=== PATIENT | female | born 1975 | race Caucasian/White ===

== ENCOUNTER 2019-03-31 16:18 | Emergency (ER) | payer BC ==
[2019-03-31 16:37] VITALS: BP 106/68
--- NOTE | 2019-03-31 16:44 | UC ---
Throat Pain/Nasal Ivan HPI - HPI Summary HPI Summary: Pt presents with c/o nasal congestion, cough, sore throat X 2 weeks. - History of Current Complaint Chief Complaint: UCRespiratory Stated Complaint: SORE THROAT Time Seen by Provider: 03/31/19 16:26 Hx Obtained From: Patient Hx Last Menstrual Period: ended 03/30/19 ?: No Onset/Duration: Sudden Onset, Lasting Weeks - 2, Still Present Severity: Moderate Pain Intensity: 7 Cough: Nonproductive Associated Signs & Symptoms: Positive: Dysphagia, Nasal Discharge - Epiglottits Risk Factors Epiglottis Risk Factors: Negative - Allergies/Home Medications Allergies/Adverse Reactions: Allergies Allergy/AdvReac Type Severity Reaction Status Date / Time No Known Allergies Allergy Verified 03/31/19 16:34 PMH/Surg Hx/FS Hx/Imm Hx Previously Healthy: Yes - Surgical History Surgical History: None - Family History Known Family History: Positive: Cardiac Disease - Social History Occupation: Employed Full-time Lives: With Family Alcohol Use: Rare Substance Use Type: None Smoking Status (MU): Former Smoker Have You Smoked in the Last Year: No - Immunization History Vaccination Up to Date: Yes Review of Systems All Other Systems Reviewed And Are Negative: Yes Constitutional: Positive: Chills, Fatigue Skin: Positive: Negative Eyes: Positive: Negative ENT: Positive: Sore Throat, Sinus Congestion Respiratory: Positive: Cough Cardiovascular: Positive: Negative Gastrointestinal: Positive: Negative Genitourinary: Positive: Negative Motor: Positive: Negative Neurovascular: Positive: Negative Musculoskeletal: Positive: Negative Neurological: Positive: Negative Psychological: Positive: Negative Is Patient Immunocompromised?: No Physical Exam Triage Information Reviewed: Yes Appearance: Well-Appearing Vital Signs: Initial Vital Signs Temp 99.7 F 03/31/19 16:35 Pulse 70 03/31/19 16:35 Resp 16 03/31/19 16:35 BP 106/68 03/31/19 16:35 Pulse Ox 99 03/31/19 16:35 Vital Signs Reviewed: Yes Eye Exam: Normal ENT: Positive: Pharyngeal erythema, Nasal congestion, Tonsillar swelling Dental Exam: Normal Neck exam: Normal Respiratory Exam: Normal Cardiovascular Exam: Normal Musculoskeletal Exam: Normal Neurological Exam: Normal Psychological Exam: Normal Skin Exam: Normal Throat Pain/Nasal Course/Dx - Differential Dx/Diagnosis Differential Diagnosis/HQI/PQRI: Pharyngitis, Tonsillitis, URI Provider Diagnosis: Sore throat (viral), Cough Discharge ED - Sign-Out/Discharge Documenting (check all that apply): Patient Departure All imaging exams completed and their final reports reviewed: No Studies - Discharge Plan Condition: Stable Disposition: HOME Prescriptions: Benzonatate CAP* [Tessalon 100 MG CAP*] 200 mg PO Q8H PRN #30 cap PRN Reason: Cough Patient Education Materials: Decongestant/Expectorant (By mouth), Viral Syndrome (ED), Acute Cough (ED) Referrals: [facility] [place] [facility]IAN REFERRAL [Outside] - If Needed No Primary Care Phys,NOPCP [Primary Care Provider] - - Billing Disposition and Condition Condition: STABLE Disposition: Home - Attestation Statements Provider Attestation: Per institutional requirements, I have reviewed the chart, however, I was not consulted specifically or made aware of this patient by the midlevel provider. I did not personally evaluate, interact with , or disposition this patient.
== END 2019-03-31 16:54 | disposition home or self-care (01) ==
LOC: UCCORT 16:18
DX: J02.8 Acute pharyngitis due to other specified organisms (principal); B96.89 Other specified bacterial agents as the cause of diseases classified elsewhere; R05 Cough; R53.83 Other fatigue; Z87.891 Personal history of nicotine dependence
CPT/HCPCS: 99211; G0463

== ENCOUNTER 2019-05-18 07:42 | Emergency (ER) | payer BC ==
[2019-05-18 07:56] VITALS: BP 112/65
--- NOTE | 2019-05-18 08:08 | UC ---
Upper Extremity HPI - HPI Summary HPI Summary: R thumb pain w/ swelling and redness x3 days. She states it was draining on day 2 but not anymore. Able to move R thumb w/ no pain. Denies fever. - History of Current Complaint Chief Complaint: KCUpperExtremity Stated Complaint: RT THUMB COMPLAINT Time Seen by Provider: 05/18/19 07:56 Hx Obtained From: Patient Hx Last Menstrual Period: ended 03/30/19 Pain Intensity: 3 Pain Scale Used: 0-10 Numeric Location Of Pain: Is Discrete @ - R thumb Character: Sharp Aggravating Factor(s): Other - touch Alleviating Factor(s): Nothing Associated Signs And Symptoms: Positive: Swelling. Negative: Fever - Allergies/Home Medications Allergies/Adverse Reactions: Allergies Allergy/AdvReac Type Severity Reaction Status Date / Time No Known Allergies Allergy Verified 03/31/19 16:34 PMH/Surg Hx/FS Hx/Imm Hx - Additional Past Medical History Additional PMH: no chronic illness Previously Healthy: Yes - Surgical History Surgical History: None - Family History Known Family History: Positive: Cardiac Disease - Social History Alcohol Use: Rare Substance Use Type: None Smoking Status (MU): Former Smoker Have You Smoked in the Last Year: No - Immunization History Vaccination Up to Date: Yes Review of Systems All Other Systems Reviewed And Are Negative: Yes Constitutional: Negative: Fever, Chills Skin: Positive: Other - redness and swelling at R thumb. Negative: Bruising Respiratory: Negative: Shortness Of Breath Musculoskeletal: Negative: Decreased ROM, Edema Neurological: Negative: Weakness, Paresthesia, Numbness Physical Exam Triage Information Reviewed: Yes Appearance: Well-Appearing Vital Signs: Initial Vital Signs Temp 98.3 F 05/18/19 07:52 Pulse 61 05/18/19 07:52 Resp 18 05/18/19 07:52 BP 112/65 05/18/19 07:52 Pulse Ox 99 05/18/19 07:52 Respiratory: Positive: No respiratory distress Musculoskeletal: Positive: ROM Intact - R thumb, Other: - base of nail bed swollen, tender, minimally draining and red. Neurological: Positive: Alert Skin: Negative: Rashes Upper Extremity Course/Dx - Course Course Of Treatment: Paronychia at R thumb x3 days. Offered pt. incision and drainage to help relieve pain and pressure to let it drain. Pt. chose instead to do warm/salty water soaks TID for the next week. ADvised to help the area drain as she soaks. Afebrile and able to move thumb w/ no joint involvement. - Differential Dx/Diagnosis Differential Diagnosis/HQI/PQRI: Bursitis, Other Provider Diagnosis: Paronychia Discharge ED - Sign-Out/Discharge Documenting (check all that apply): Patient Departure All imaging exams completed and their final reports reviewed: No Studies - Discharge Plan Condition: Good Disposition: HOME Patient Education Materials: Paronychia (ED) Referrals: No Primary Care Phys,NOPCP [Primary Care Provider] - Additional Instructions: If infection worsens please return. - Billing Disposition and Condition Condition: GOOD Disposition: Home - Attestation Statements Provider Attestation: Per institutional requirements, I have reviewed the chart, however, I was not consulted specifically or made aware of this patient by the midlevel provider. I did not personally evaluate, interact with , or disposition this patient.
== END 2019-05-18 08:16 | disposition home or self-care (01) ==
LOC: UCCORT 07:42
DX: L03.011 Cellulitis of right finger (principal); Z87.891 Personal history of nicotine dependence
CPT/HCPCS: 99211; G0463

== ENCOUNTER 2019-05-31 08:34 | Emergency (ER) | payer BC ==
[2019-05-31 08:57] VITALS: BP 109/67
--- NOTE | 2019-05-31 09:28 | UC ---
Skin Complaint HPI - HPI Summary HPI Summary: 43 yo woman who has been treating paronychia with warm soaks for the past 2 weeks. She has now developed some granulation tissue at the cuticle, persistent drainage and progressive redness and pain. Reviewed old note: declined I+D at last visit and has been soaking with alternate vinegar and water and salt and water. --has left eye irritation and drainage since about 1 am; aware that she rubbed her eye with lotion on her hands yesterday. No vision change or photophobia. - History of Current Complaint Chief Complaint: UCSkin Time Seen by Provider: 05/31/19 09:17 Stated Complaint: RIGHT THUMB SKIN Hx Obtained From: Patient Hx Last Menstrual Period: mid Apr Onset/Duration: Gradual Onset, Lasting Weeks Skin Exposure Onset/Duration: Weeks Ago Timing: Constant Onset Severity: Mild Current Severity: Moderate Pain Intensity: 3 Location: Discrete, Hand (Right) Aggravating Factor(s): Touch Alleviating Factor(s): Other - warm soaks Associated Signs & Symptoms: Positive: Negative - Allergy/Home Medications Allergies/Adverse Reactions: Allergies Allergy/AdvReac Type Severity Reaction Status Date / Time corn Allergy Hives, GI Verified 05/31/19 08:58 problems seasonal Allergy Eyes Uncoded 05/31/19 08:58 Itchy/Swollen/Red/Watery Home Medications: Home Medications Ibuprofen TAB* [Motrin TAB* 400 MG] 400 mg PO ONCE PRN 05/31/19 [History Confirmed 05/31/19] PMH/Surg Hx/FS Hx/Imm Hx Previously Healthy: Yes - Surgical History Surgical History: None - Family History Known Family History: Positive: Cardiac Disease - Social History Occupation: Employed Full-time Lives: With Family Alcohol Use: Occasionally Substance Use Type: None Smoking Status (MU): Former Smoker Have You Smoked in the Last Year: No - Immunization History Vaccination Up to Date: Yes Review of Systems All Other Systems Reviewed And Are Negative: Yes Constitutional: Positive: Negative Skin: Positive: Other - draiange and pain right thumb distal digit Eyes: Positive: Eye Redness ENT: Positive: Negative Respiratory: Positive: Negative Cardiovascular: Positive: Negative Gastrointestinal: Positive: Negative Genitourinary: Positive: Negative Motor: Positive: Negative Neurovascular: Positive: Negative Musculoskeletal: Positive: Negative Neurological: Positive: Negative Psychological: Positive: Negative Is Patient Immunocompromised?: No Physical Exam Triage Information Reviewed: Yes Appearance: Well-Appearing, Pain Distress - mild Vital Signs: Initial Vital Signs Temp 99 F 05/31/19 08:49 Pulse 60 05/31/19 08:49 Resp 18 05/31/19 08:49 BP 109/67 05/31/19 08:49 Pulse Ox 100 05/31/19 08:49 Eyes: Positive: Conjunctiva Inflamed - on left. YVES without photophobia. ENT: Positive: Normal ENT inspection, Pharynx normal Neck: Positive: Supple, Nontender, No Lymphadenopathy Respiratory: Positive: Lungs clear, Normal breath sounds Cardiovascular: Positive: RRR, No Murmur Musculoskeletal Exam: Normal Neurological Exam: Normal Psychological Exam: Normal Skin Exam: Other - right thumb with induration and erythema extending to the DIP joint. Induration is diffuse, and there is purulent drainage from the cuticle with a 4 mm x 1 mm strip of granulation tissue at the cuticle. Course/Dx - Course Course Of Treatment: cephalexin for tx of cellulitis, polytrim drops to the left eye. Saline soaks only. - Differential Diagnoses - Skin Complaint Differential Diagnoses: Cellulitis, Other - paronychia conjunctivitis - Diagnoses Provider Diagnosis: Cellulitis of thumb, right, Conjunctivitis Discharge ED - Sign-Out/Discharge Documenting (check all that apply): Patient Departure All imaging exams completed and their final reports reviewed: No Studies - Discharge Plan Condition: Stable Disposition: HOME Prescriptions: cephALEXin [Keflex] 500 mg PO TID #21 capsule Polymyx/Trimethoprim OPTH* [Polytrim OPHTH*] 2 drop LEFT EYE QID #1 btl Patient Education Materials: Cellulitis (ED) Referrals: ANGELA Manjarrez [Primary Care Provider] - Additional Instructions: Stop vinegar soaks but continue salt water soaks of the right thumb for 10 minutes every few hours. If an abscess forms, return in 1-2 days for drainage. Begin cephalexin 500mg three times daily for treatment of cellulitis. Use eye drops to the left eye for treatment of conjunctivitis. Use ibuprofen 600mg up to 4 times per day as needed for pain. - Billing Disposition and Condition Condition: STABLE Disposition: Home
--- NOTE | 2019-05-31 19:08 | UC ---
- Progress Note Progress Note: Cx + Staph aureus, not mrsa. Taking cephelexin. Remainder of cx pending. No change in management as of yet. Course/Dx - Diagnoses Provider Diagnoses: Cellulitis of thumb, right, Conjunctivitis Discharge ED - Sign-Out/Discharge Documenting (check all that apply): Post-Discharge Follow Up All imaging exams completed and their final reports reviewed: No Studies - Discharge Plan Condition: Stable Disposition: HOME Prescriptions: cephALEXin [Keflex] 500 mg PO TID #21 capsule Polymyx/Trimethoprim OPTH* [Polytrim OPHTH*] 2 drop LEFT EYE QID #1 btl Patient Education Materials: Cellulitis (ED) Referrals: ANGELA Manjarrez [Primary Care Provider] - Additional Instructions: Stop vinegar soaks but continue salt water soaks of the right thumb for 10 minutes every few hours. If an abscess forms, return in 1-2 days for drainage. Begin cephalexin 500mg three times daily for treatment of cellulitis. Use eye drops to the left eye for treatment of conjunctivitis. Use ibuprofen 600mg up to 4 times per day as needed for pain. - Billing Disposition and Condition Condition: STABLE Disposition: Home
== END 2019-05-31 09:52 | disposition home or self-care (01) ==
LOC: UCCORT 08:34
DX: L03.011 Cellulitis of right finger (principal); H10.9 Unspecified conjunctivitis; Z91.018 Allergy to other foods; Z91.09 Other allergy status, other than to drugs and biological substances; Z87.891 Personal history of nicotine dependence
CPT/HCPCS: 87070; 87077; 87186; 87205; 87640; 87641; 99212; G0463